=== PATIENT | male | born 1945 | race Asian ===

== ENCOUNTER 2016-05-11 13:10 | Inpatient (IN) | payer MEDICARE, OTHER ==
[~2016-05-11] VITALS: Ht 162.6 cm; Wt 63.4 kg
[~2016-05-11 13:10] MED LIST: ALLO100T PO; CARV3 PO; DULO20CA30 PO; METF500T4 PO
[2016-05-11] MEDS ORDERED: ASPI-556 PO (14:18)
[2016-05-11 14:41] LABS: GLUCOSE,POINT OF CARE 128 MG/DL (70-110)
[2016-05-11] MEDS ORDERED: KETOROLAC TROMETHAMINE 30 MG/ML VIAL IVP ONE (15:00)
[2016-05-11] MEDS ORDERED: CYCLOBENZAPRINE HCL 10 MG TABLET PO ONE (15:00)
[2016-05-11] MEDS ORDERED: ACETAMINOPHEN 1000 MG/ISO-OSM 100 ML IV ONE (15:00)
[2016-05-11] MEDS ORDERED: SODIUM CHLORIDE 0.9% 1,000 ML IV ONE (15:00)
[2016-05-11 15:51] LABS: BASOPHILS % (AUTO) 0.1 % (0.0-2.0); EOSINOPHILS % (AUTO) 0.2 % (1.0-6.0); HEMATOCRIT 44.8 % (41-53); HEMOGLOBIN 13.7 g/dL (13.5-17.5); LYMPHOCYTES # (AUTO) 1.1 K/uL (1.0-4.8); LYMPHOCYTES % (AUTO) 10.6 % (22.0-44.0); MEAN CORPUSCULAR HEMOGLOBIN 23.9 pg (26.0-34.0); MEAN CORPUSCULAR HGB CONC 30.5 G/dL (31.0-37.0); MEAN CORPUSCULAR VOLUME 78 fL (80-100); MONOCYTES # (AUTO) 1.1 K/uL (0.1-1.0); MONOCYTES % (AUTO) 10.2 % (2.0-9.0); NEUTROPHILS # (AUTO) 8.4 K/uL (1.8-7.7); NEUTROPHILS % (AUTO) 78.9 % (40.0-70.0); PLATELET COUNT (AUTO) 229 K/uL (150-450); RED BLOOD CELL COUNT(AUTO) 5.73 MIL/uL (4.50-5.90); RED CELL DISTRIBUTION WIDTH 16.2 % (11.5-14.5); WHITE BLOOD COUNT (AUTO) 10.6 K/uL (4.5-11.0)
[2016-05-11 16:00] LABS: ANION GAP 13 mmol/L (8-16); CALCIUM, TOTAL 9.7 mg/dL (8.8-10.5); CARBON DIOXIDE 26 mmol/L (22-29); CHLORIDE 104 mmol/L (98-107); CREATININE 1.02 mg/dL (0.60-1.30); GLOMERULAR FILTR. RATE CALC > 60 mL/min (>60); SODIUM SERUM 143 mmol/L (136-145); UREA NITROGEN, BLOOD 25 mg/dL (7-18)
[2016-05-11 16:13] LABS: ALANINE AMINOTRANSFERASE 30 U/L (12-78); ALBUMIN 3.8 g/dL (3.4-5.0); ASPARTATE AMINOTRANSFERASE 13 U/L (15-37); BILIRUBIN,TOTAL 1.2 mg/dL (0.1-1.0); CREATINE KINASE, TOTAL 38 U/L (39-308); TOTAL PROTEIN, SERUM 8.9 g/dL (6.4-8.2)
[2016-05-11] MEDS ORDERED: ZOLPIDEM TARTRATE 10 MG TABLET PO PRN (18:45)
[2016-05-11] MEDS ORDERED: LORazepam 1 MG TABLET PO PRN (18:45)
[2016-05-11 21:52] VITALS: BP 118/65
[2016-05-11] MEDS ORDERED: DEXTROSE 50%-WATER 25 GM/50 ML SYRINGE IVP PRN (22:15)
[2016-05-12 06:22] LABS: GLUCOSE,POINT OF CARE 125 MG/DL (70-110)
[2016-05-12] MEDS: MetFORMIN HCL 500 MG TABLET PO SCH ×2 (06:51→17:27)
[2016-05-12 08:00] VITALS: BP 150/79
[2016-05-12] MEDS: ASPIRIN 81 MG EC TABLET PO SCH (08:03)
[2016-05-12] MEDS: DULoxetine HCL 20 MG CAPSULE PO SCH (08:03)
[2016-05-12] MEDS: CARVEDILOL 3.125 MG TABLET PO SCH ×2 (08:03→16:29)
[2016-05-12] MEDS: ALLOPURINOL 100 MG TABLET PO SCH (08:03)
[2016-05-12] MEDS ORDERED: HydrOXYzine PAMOATE 50 MG CAPSULE PO PRN (12:00)
[2016-05-12] MEDS ORDERED: MAG HYDROX/AL HYDROX/SIMETH ES 30 ML SUSPENSION UDCUP PO PRN (12:00)
[2016-05-12] MEDS ORDERED: LOPERAMIDE HCL 2 MG CAPSULE PO PRN (12:00)
[2016-05-12] MEDS ORDERED: ACETAMINOPHEN 325 MG TABLET PO PRN (12:00)
[2016-05-12] MEDS ORDERED: MAGNESIUM HYDROXIDE SUSPENSION 30 ML UDCUP PO PRN (12:00)
[2016-05-12] MEDS ORDERED: PROMETHAZINE HCL 25 MG TABLET PO PRN (12:00)
[2016-05-12] MEDS ORDERED: GuaiFENesin/D-METHORPHAN [SUGAR-FREE] 200-20MG/10 ML SYRUP UDCUP PO PRN (12:00)
[2016-05-12] MEDS ORDERED: DULO30CA2 PO (12:05)
[2016-05-12 16:17] LABS: GLUCOSE,POINT OF CARE 186 MG/DL (70-110)
[2016-05-12 16:29] VITALS: BP 127/77
[2016-05-12] MEDS: THIAMINE HCL 100 MG TABLET PO SCH (16:29)
[2016-05-12] MEDS: INDOMETHACIN 50 MG CAPSULE PO PRN ×2 (16:30→23:55)
[2016-05-12] MEDS: PREGABALIN 25 MG CAPSULE PO SCH (17:27)
[2016-05-12] MEDS: INSULIN ASPART 100 UNITS/ML SQ PRN (17:28)
[2016-05-12 17:29] VITALS: BP 131/75
[2016-05-12 23:53] VITALS: BP 150/92
[2016-05-13 05:27] LABS: GLUCOSE,POINT OF CARE 160 MG/DL (70-110)
[2016-05-13] MEDS: MetFORMIN HCL 500 MG TABLET PO SCH ×2 (06:35→16:55)
[2016-05-13] MEDS: INSULIN ASPART 100 UNITS/ML SQ PRN (07:11)
[2016-05-13] MEDS: MULTIVITAMINS WITH MINERALS, THERAPEUTIC TABLET PO SCH (08:31)
[2016-05-13] MEDS: ASPIRIN 81 MG EC TABLET PO SCH (08:32)
[2016-05-13] MEDS: CARVEDILOL 3.125 MG TABLET PO SCH ×2 (08:32→16:55)
[2016-05-13] MEDS: FOLIC ACID 1 MG TABLET PO SCH (08:33)
[2016-05-13] MEDS: PREGABALIN 25 MG CAPSULE PO SCH ×3 (08:33→16:55)
[2016-05-13] MEDS: THIAMINE HCL 100 MG TABLET PO SCH ×2 (08:33→16:55)
[2016-05-13] MEDS: ALLOPURINOL 100 MG TABLET PO SCH (08:33)
[2016-05-13] MEDS: DULoxetine HCL 20 MG CAPSULE PO SCH (08:45)
[2016-05-13 09:43] VITALS: BP 155/92
[2016-05-13 16:22] LABS: GLUCOSE,POINT OF CARE 108 MG/DL (70-110)
[2016-05-13 16:57] VITALS: BP 140/86
[2016-05-14 05:22] LABS: GLUCOSE,POINT OF CARE 114 MG/DL (70-110)
[2016-05-14 07:01] VITALS: BP 135/89
[2016-05-14] MEDS: MetFORMIN HCL 500 MG TABLET PO SCH ×2 (07:01→16:58)
[2016-05-14] MEDS: PREGABALIN 25 MG CAPSULE PO SCH ×3 (08:10→16:59)
[2016-05-14] MEDS: DULoxetine HCL 20 MG CAPSULE PO SCH (08:10)
[2016-05-14] MEDS: CARVEDILOL 3.125 MG TABLET PO SCH ×2 (08:10→16:59)
[2016-05-14] MEDS: MULTIVITAMINS WITH MINERALS, THERAPEUTIC TABLET PO SCH (08:10)
[2016-05-14] MEDS: ASPIRIN 81 MG EC TABLET PO SCH (08:11)
[2016-05-14] MEDS: THIAMINE HCL 100 MG TABLET PO SCH ×2 (08:11→16:59)
[2016-05-14] MEDS: FOLIC ACID 1 MG TABLET PO SCH (08:11)
[2016-05-14] MEDS: ALLOPURINOL 100 MG TABLET PO SCH (08:12)
[2016-05-14 10:23] VITALS: BP 158/84
[2016-05-14] MEDS: INDOMETHACIN 50 MG CAPSULE PO PRN (10:41)
[2016-05-14 10:43] VITALS: BP 158/84
[2016-05-14 11:41] VITALS: BP 146/80
[2016-05-14 17:06] LABS: GLUCOSE,POINT OF CARE 142 MG/DL (70-110)
[2016-05-14 19:03] VITALS: BP 146/83
[2016-05-15 05:57] LABS: GLUCOSE,POINT OF CARE 128 MG/DL (70-110)
[2016-05-15] MEDS: MetFORMIN HCL 500 MG TABLET PO SCH ×2 (06:53→16:50)
[2016-05-15 07:03] VITALS: BP 141/81
[2016-05-15 07:22] LABS: CHOL/HDL RATIO 3.7 (4.2-7.3); CREATINE KINASE, TOTAL 22 U/L (39-308)
[2016-05-15 07:37] LABS: URIC ACID 6.3 mg/dL (2.6-7.2)
[2016-05-15 08:00] VITALS: BP 150/83
[2016-05-15] MEDS: ALLOPURINOL 100 MG TABLET PO SCH (08:46)
[2016-05-15] MEDS: ASPIRIN 81 MG EC TABLET PO SCH (08:46)
[2016-05-15] MEDS: PREGABALIN 25 MG CAPSULE PO SCH ×3 (08:46→16:50)
[2016-05-15] MEDS: DULoxetine HCL 20 MG CAPSULE PO SCH (08:47)
[2016-05-15] MEDS: FOLIC ACID 1 MG TABLET PO SCH (08:47)
[2016-05-15] MEDS: CARVEDILOL 3.125 MG TABLET PO SCH (08:47)
[2016-05-15] MEDS: THIAMINE HCL 100 MG TABLET PO SCH ×2 (08:47→16:50)
[2016-05-15] MEDS: MULTIVITAMINS WITH MINERALS, THERAPEUTIC TABLET PO SCH (08:47)
[2016-05-15] MEDS ORDERED: CARVEDILOL 6.25 MG TABLET PO SCH (09:00)
[2016-05-15 16:43] VITALS: BP 136/75
[2016-05-15] MEDS: CARVEDILOL 6.25 MG TABLET PO SCH (16:51)
[2016-05-15 17:01] LABS: GLUCOSE,POINT OF CARE 155 MG/DL (70-110)
[2016-05-15] MEDS: INSULIN ASPART 100 UNITS/ML SQ PRN (17:09)
[2016-05-16 05:42] LABS: GLUCOSE,POINT OF CARE 131 MG/DL (70-110)
[2016-05-16] MEDS: MetFORMIN HCL 500 MG TABLET PO SCH ×2 (07:09→16:39)
[2016-05-16] MEDS: CARVEDILOL 6.25 MG TABLET PO SCH ×2 (08:49→16:39)
[2016-05-16] MEDS: ASPIRIN 81 MG EC TABLET PO SCH (08:50)
[2016-05-16] MEDS: MULTIVITAMINS WITH MINERALS, THERAPEUTIC TABLET PO SCH (08:50)
[2016-05-16] MEDS: FOLIC ACID 1 MG TABLET PO SCH (08:50)
[2016-05-16] MEDS: PREGABALIN 25 MG CAPSULE PO SCH ×2 (08:50→13:06)
[2016-05-16] MEDS: DULoxetine HCL 30 MG CAPSULE PO SCH (08:50)
[2016-05-16] MEDS: ALLOPURINOL 100 MG TABLET PO SCH (08:51)
[2016-05-16] MEDS: THIAMINE HCL 100 MG TABLET PO SCH ×2 (08:51→16:39)
[2016-05-16 08:56] VITALS: BP 142/77
[2016-05-16] MEDS: INDOMETHACIN 50 MG CAPSULE PO PRN (08:59)
[2016-05-16] MEDS: PREGABALIN 50 MG CAPSULE PO SCH (16:39)
[2016-05-16] MEDS: INSULIN ASPART 100 UNITS/ML SQ PRN (16:48)
[2016-05-16 16:59] VITALS: BP 130/69
[2016-05-17 05:47] VITALS: BP_SYST 142
[2016-05-17 05:53] LABS: GLUCOSE,POINT OF CARE 128 MG/DL (70-110)
[2016-05-17] MEDS: MetFORMIN HCL 500 MG TABLET PO SCH ×2 (07:02→16:35)
[2016-05-17] MEDS: ALLOPURINOL 100 MG TABLET PO SCH (08:48)
[2016-05-17] MEDS: THIAMINE HCL 100 MG TABLET PO SCH ×2 (08:48→16:35)
[2016-05-17] MEDS: MULTIVITAMINS WITH MINERALS, THERAPEUTIC TABLET PO SCH (08:48)
[2016-05-17] MEDS: CARVEDILOL 6.25 MG TABLET PO SCH ×2 (08:48→16:35)
[2016-05-17] MEDS: ASPIRIN 81 MG EC TABLET PO SCH (08:48)
[2016-05-17] MEDS: FOLIC ACID 1 MG TABLET PO SCH (08:48)
[2016-05-17] MEDS: DULoxetine HCL 30 MG CAPSULE PO SCH (08:48)
[2016-05-17] MEDS: PREGABALIN 50 MG CAPSULE PO SCH ×3 (08:48→16:35)
[2016-05-17 08:50] VITALS: BP 145/70
[2016-05-17] MEDS: INDOMETHACIN 50 MG CAPSULE PO PRN (08:50)
[2016-05-17 09:50] VITALS: BP 130/89
[2016-05-17 16:50] VITALS: BP 149/86
[2016-05-17] MEDS: INSULIN ASPART 100 UNITS/ML SQ PRN (17:42)
[2016-05-18 05:27] LABS: GLUCOSE,POINT OF CARE 146 MG/DL (70-110)
[2016-05-18] MEDS: MetFORMIN HCL 500 MG TABLET PO SCH ×2 (06:53→17:11)
[2016-05-18] MEDS: INSULIN ASPART 100 UNITS/ML SQ PRN ×2 (07:08→17:35)
[2016-05-18 07:09] VITALS: BP 142/80
[2016-05-18 08:53] VITALS: BP 130/84
[2016-05-18] MEDS: PREGABALIN 50 MG CAPSULE PO SCH ×3 (08:53→17:11)
[2016-05-18] MEDS: MULTIVITAMINS WITH MINERALS, THERAPEUTIC TABLET PO SCH (08:53)
[2016-05-18] MEDS: ALLOPURINOL 100 MG TABLET PO SCH (08:53)
[2016-05-18] MEDS: ASPIRIN 81 MG EC TABLET PO SCH (08:53)
[2016-05-18] MEDS: THIAMINE HCL 100 MG TABLET PO SCH ×2 (08:53→17:11)
[2016-05-18] MEDS: FOLIC ACID 1 MG TABLET PO SCH (08:53)
[2016-05-18] MEDS: DULoxetine HCL 20 MG CAPSULE PO SCH (08:53)
[2016-05-18] MEDS: CARVEDILOL 6.25 MG TABLET PO SCH ×2 (08:53→17:11)
[2016-05-18] MEDS: INDOMETHACIN 50 MG CAPSULE PO PRN (08:53)
[2016-05-18 09:53] VITALS: BP 131/79
[2016-05-18] MEDS ORDERED: DULO20CA30 PO (16:03)
[2016-05-18] MEDS ORDERED: PREG50 PO (16:03)
[2016-05-18 16:50] VITALS: BP 135/76
[2016-05-19 05:27] LABS: GLUCOSE,POINT OF CARE 134 MG/DL (70-110)
[2016-05-19 05:46] VITALS: BP 133/71
[2016-05-19] MEDS: ASPIRIN 81 MG EC TABLET PO SCH (08:18)
[2016-05-19] MEDS: CARVEDILOL 6.25 MG TABLET PO SCH ×2 (08:19→16:32)
[2016-05-19] MEDS: DULoxetine HCL 20 MG CAPSULE PO SCH (08:19)
[2016-05-19] MEDS: THIAMINE HCL 100 MG TABLET PO SCH ×2 (08:19→16:32)
[2016-05-19] MEDS: MULTIVITAMINS WITH MINERALS, THERAPEUTIC TABLET PO SCH (08:20)
[2016-05-19] MEDS: PREGABALIN 50 MG CAPSULE PO SCH ×3 (08:20→16:32)
[2016-05-19] MEDS: MetFORMIN HCL 500 MG TABLET PO SCH ×2 (08:20→17:36)
[2016-05-19] MEDS: FOLIC ACID 1 MG TABLET PO SCH (08:20)
[2016-05-19] MEDS: ALLOPURINOL 100 MG TABLET PO SCH (08:20)
[2016-05-19 08:30] VITALS: BP 152/86
[2016-05-19] MEDS ORDERED: DULO20CA30 PO (08:36)
[2016-05-19] MEDS: INSULIN ASPART 100 UNITS/ML SQ PRN (17:06)
[2016-05-19 18:53] VITALS: BP 137/85
[2016-05-20 05:36] LABS: GLUCOSE,POINT OF CARE 144 MG/DL (70-110)
[2016-05-20] MEDS: MetFORMIN HCL 500 MG TABLET PO SCH (06:56)
[2016-05-20] MEDS: INSULIN ASPART 100 UNITS/ML SQ PRN (07:06)
[2016-05-20 08:30] VITALS: BP 136/74
[2016-05-20] MEDS: MULTIVITAMINS WITH MINERALS, THERAPEUTIC TABLET PO SCH (08:52)
[2016-05-20] MEDS: DULoxetine HCL 20 MG CAPSULE PO SCH (08:52)
[2016-05-20] MEDS: CARVEDILOL 6.25 MG TABLET PO SCH (08:52)
[2016-05-20] MEDS: THIAMINE HCL 100 MG TABLET PO SCH (08:52)
[2016-05-20] MEDS: ALLOPURINOL 100 MG TABLET PO SCH (08:52)
[2016-05-20] MEDS: ASPIRIN 81 MG EC TABLET PO SCH (08:52)
[2016-05-20] MEDS: PREGABALIN 50 MG CAPSULE PO SCH (08:52)
[2016-05-20] MEDS: FOLIC ACID 1 MG TABLET PO SCH (08:52)
[2016-05-21 05:57] LABS: GLUCOSE COMMENT 1 Received Meds; GLUCOSE,POINT OF CARE 166 MG/DL (70-110)
[2016-05-21 06:02] LABS: GLUCOSE COMMENT 1 Received Meds; GLUCOSE,POINT OF CARE 158 MG/DL (70-110)
[2016-05-21 06:02] LABS: GLUCOSE,POINT OF CARE 159 MG/DL (70-110)
[2016-05-21 06:02] LABS: GLUCOSE COMMENT 1 Received Meds; GLUCOSE,POINT OF CARE 242 MG/DL (70-110)
== END 2016-05-20 10:00 | disposition home or self-care (01) | DRG 885 ==
LOC: EMS 13:12 → 3EX 20:21
PROVIDERS: ADMIT Psychiatry & Neurology Psychiatry; ATTEND Psychiatry & Neurology Psychiatry
PROC: GZ51ZZZ Individual Psychotherapy, Behavioral (ICD-10-PCS; principal; 2016-05-11)
DX: F33.2 Major depressive disorder, recurrent severe without psychotic features (principal); I10 Essential (primary) hypertension; E78.5 Hyperlipidemia, unspecified; E11.9 Type 2 diabetes mellitus without complications; I51.9 Heart disease, unspecified; R26.9 Unspecified abnormalities of gait and mobility; M10.9 Gout, unspecified; Z79.82 Long term (current) use of aspirin; Z88.8 Allergy status to other drugs, medicaments and biological substances; Z59.9 Problem related to housing and economic circumstances, unspecified; Z65.3 Problems related to other legal circumstances; Z91.19 Patient's noncompliance with other medical treatment and regimen; Z79.899 Other long term (current) drug therapy; Z79.84 Long term (current) use of oral hypoglycemic drugs
CPT/HCPCS: 82306; 82607; 82746; 82962; 83036; 83735; 84443; 84550; 93970; 96360; 96361; 96365; 96366; 96375; 99285; J0131; J1885; J7030